=== PATIENT | female | born 1995 | race African-American/Black ===

== ENCOUNTER 2021-02-22 16:45 | Inpatient (IN) ==
[2021-02-22 17:15] LABS: Basophils % 0.1 % (0.0-0.8); Eosinophils % 0.5 % (0.00-10.9); Hematocrit 34.7 VOL% (35.7-47.0); Hemoglobin 10.7 GM/DL (12.0-16.0); Immature Granulocytes % 0.2 %; Immature Granulocytes Absolute 0.02 #; Lymphocytes # 1.7 10*3/uL (1.4-4.0); Mean Corpuscular HGB Conc 30.8 GM/DL (32-36); Monocytes % 10.5 % (1.7-12.7); Neutrophils % 67.7 % (38.7-73.9); Platelet Count 178 T/CUMM (130-400); Red Blood Count 5.03 MC/CUMM (3.8-5.5); Red Cell Distribution Width 15.2 % (9.3-17.3); White Blood Count 8.1 T/CUMM (4-12)
[2021-02-22 17:30] LABS: INR 0.9; PT Patient Result 10.2 SECS (10.5-12.0); Partial Thromboplastin Time 29.3 SECS (23.9-33.8)
[2021-02-22 17:38] LABS: Alanine Aminotransferase < 9 U/L (13-56); Albumin 2.9 G/DL (3.4-5.0); Alkaline Phosphatase 125 U/L (45-117); Aspartate Amino Transferase 8 U/L (0-37); Bilirubin,Direct < 0.100 MG/DL (0.0-0.20); Bilirubin,Total < 0.39 MG/DL (0.20-1.00); Blood Urea Nitrogen 5 MG/DL (7-18); Calcium 8.6 MG/DL (8.5-10.1); Carbon Dioxide 19 MMOL/L (21-32); Estimated Glom Filtration Rate 211 ML/MIN; Glucose 77 MG/DL (74-106); Osmolality,Calculated 270.7 MOS/KG (273-304); Potassium 3.9 MMOL/L (3.5-5.1); Sodium 138 MMOL/L (136-145); Total Protein 7.6 G/DL (6.4-8.2); Uric Acid 3.8 MG/DL (2.6-6.0)
[2021-02-22] MEDS ORDERED: BUTORPHANOL 1 MG/ML VIAL IV PRN (19:39)
[2021-02-22] MEDS ORDERED: LACTATED RINGERS 1,000 ML IV ONE (19:44)
[2021-02-22 20:26] LABS: Protein/Creatinine Ratio,Urine 0.2 RATIO
[2021-02-22] MEDS ORDERED: diphenhydrAMINE 50 MG/1 ML VIAL IV PRN (22:40)
[2021-02-22] MEDS: LACTATED RINGERS 1,000 ML IV SCH (23:02)
[2021-02-22] MEDS: BUTORPHANOL 1 MG/ML VIAL IV PRN (23:44)
[2021-02-23] MEDS: LACTATED RINGERS 1,000 ML IV SCH ×3 (03:13→18:39)
[2021-02-23] MEDS: BUTORPHANOL 1 MG/ML VIAL IV PRN (04:30)
[2021-02-23] MEDS ORDERED: LABETALOL 200 MG TABLET PO STA (07:08)
[2021-02-23] MEDS ORDERED: ONDANSETRON 4 MG/2 ML VIAL IV PRN ×3 (08:33→20:12)
[2021-02-23] MEDS ORDERED: hydrOXYzine HCL 25 MG/1 ML VIAL IM PRN (08:41)
[2021-02-23] MEDS ORDERED: CITRIC ACID/SODIUM CITRATE 30 ML UDCUP PO ONE (08:41)
[2021-02-23] MEDS ORDERED: ePHEDrine 50 MG/ML VIAL IV PRN (08:41)
[2021-02-23] MEDS ORDERED: NALOXONE 0.4 MG/ML VIAL IV PRN (08:41)
[2021-02-23] MEDS ORDERED: diphenhydrAMINE 50 MG/1 ML VIAL IV PRN ×2 (08:41)
[2021-02-23] MEDS ORDERED: LACTATED RINGERS 1,000 ML IV ONE (08:41)
[2021-02-23] MEDS ORDERED: FAMOTIDINE 20 MG/2 ML VIAL IV ONE (08:41)
[2021-02-23] MEDS ORDERED: LACTATED RINGERS 250 ML IV PRN (08:41)
[2021-02-23] MEDS ORDERED: PROMETHAZINE 25 MG/1 ML VIAL IM PRN (08:41)
[2021-02-23] MEDS ORDERED: AMPICILLIN 2,000 MG VIAL IV ONE (09:00)
[2021-02-23] MEDS: fentaNYL 2 MCG/ROPIV 0.2% EPID 100 ML EPIDURAL SCH ×2 (10:30→18:41)
[2021-02-23 11:39] LABS: Bilirubin,Urine Negative (Negative); Blood, Urine Negative (Negative); Glucose,Urine (UA) Negative (Negative); Ketones,Urine 20 mg/dL (Negative); Mucus,Urine Occasional /LPF (Occasional); Nitrite,Urine Negative (Negative); Protein,Urine Negative; RBC,Urine <1 /HPF (0-4); Squamous Epithelial Cell,Urine Occasional /HPF (0-10); Urine Appearance CLEAR (Clear); Urine Color Yellow (Yellow); Urine Specific Gravity 1.021 (1.001-1.035); Urine Urobilinogen < 2.0 EU/DL (0.2-1.0)
[2021-02-23] MEDS ORDERED: OXYTOCIN/LR 20 UNIT/1,000 ML BAG IV ONE ×3 (12:28→20:12)
[2021-02-23] MEDS ORDERED: OXYTOCIN/LR 20 UNIT/1,000 ML BAG IV SCH (12:30)
[2021-02-23] MEDS: AMPICILLIN INJ 1,000 MG in SODIUM CHLORIDE 0.9% 100 ML IV SCH ×2 (13:40→16:29)
[2021-02-23] MEDS ORDERED: TRANEXAMIC ACID 1,000 MG/10 ML VIAL ONE (18:10)
[2021-02-23] MEDS ORDERED: miSOPROStoL 200 MCG TABLET ONE (18:10)
[2021-02-23] MEDS ORDERED: CARBOPROST TROMETHAMINE 250 MCG/ML AMP IM ONE (18:12)
[2021-02-23] MEDS ORDERED: METHYLERGONOVINE 0.2 MG/1 ML AMP ONE (18:12)
[2021-02-23 20:03] LABS: Cord Venous Blood HCO3 19.3 MMOL/L; Cord Venous Blood PCO2 36.1 MMHG
[2021-02-23] MEDS ORDERED: ACETAMINOPHEN 325 MG TABLET PO PRN (20:12)
[2021-02-23] MEDS ORDERED: IBUPROFEN 800 MG TABLET PO PRN (20:12)
[2021-02-23] MEDS ORDERED: WITCH HAZEL PADS 100/JAR TOP PRN (20:12)
[2021-02-23] MEDS ORDERED: BENZOCAINE 20%/MENTHOL 0.5% SPRAY 56 GM CAN TOP PRN (20:12)
[2021-02-23] MEDS ORDERED: LANOLIN 50% CREAM 0.3 OZ TUBE TOP PRN (20:12)
[2021-02-23] MEDS ORDERED: HYDROCORTISONE 2.5% RECTAL CREAM 30 GM TUBE TOP PRN (20:12)
[2021-02-23] MEDS ORDERED: BISACODYL 10 MG SUPP RECTAL PRN (20:12)
[2021-02-23] MEDS ORDERED: DIPH/TET/ACEL PERT BOOSTER VACCINE 0.5 ML VIAL IM ONE (20:12)
[2021-02-23] MEDS ORDERED: ACETAMINOPHEN/CODEINE 300-30 MG TABLET PO PRN (20:12)
[2021-02-23] MEDS ORDERED: ACETAMINOPHEN 500 MG TABLET PO PRN (20:16)
[2021-02-23] MEDS ORDERED: KETOROLAC 30 MG/1 ML VIAL IM ONE (22:00)
[2021-02-24 06:07] LABS: Basophils % 0.2 % (0.0-0.8); Eosinophils % 0.3 % (0.00-10.9); Hematocrit 30.4 VOL% (35.7-47.0); Hemoglobin 9.6 GM/DL (12.0-16.0); Immature Granulocytes % 0.3 %; Immature Granulocytes Absolute 0.03 #; Lymphocytes # 1.6 10*3/uL (1.4-4.0); Lymphocytes % 14.5 % (21.3-54.2); Mean Corpuscular HGB Conc 31.6 GM/DL (32-36); Mean Corpuscular Volume 68.8 FL (87-102); Neutrophils % 74.7 % (38.7-73.9); Platelet Count 161 T/CUMM (130-400); Red Blood Count 4.42 MC/CUMM (3.8-5.5); White Blood Count 11.3 T/CUMM (4-12)
[2021-02-24 06:31] LABS: Hypochromasia 1+; Microcytosis 1+; Platelet Estimate Adequate
[2021-02-24] MEDS: FERROUS SULFATE 325 MG TABLET PO SCH (08:38)
[2021-02-24] MEDS: DOCUSATE SODIUM 100 MG CAPSULE PO SCH ×2 (08:38→20:49)
[2021-02-25 08:14] VITALS: BP 133/85
[2021-02-25] MEDS: DOCUSATE SODIUM 100 MG CAPSULE PO SCH (08:50)
[2021-02-25] MEDS: FERROUS SULFATE 325 MG TABLET PO SCH (08:50)
== END 2021-02-25 15:00 | disposition home or self-care (01) | DRG 560 ==
LOC: N.LDOUT 16:45 → N.LD 16:46 → N.OB 02-23 22:50
PROVIDERS: ADMIT Obstetrics & Gynecology; ATTEND Obstetrics & Gynecology